=== PATIENT | female | born 1990 | race Caucasian/White ===

== ENCOUNTER 2019-01-04 22:48 | Inpatient (IN) | payer MEDICAID ==
[~2019-01-04] VITALS: Ht 152.4 cm; Wt 80.0 kg
[2019-01-04 23:20] VITALS: Ht 152.4 cm; Wt 80.0 kg
[2019-01-04 23:21] VITALS: BP 130/90; PULSE 90; RESP 20
[2019-01-04] MEDS ORDERED: PREN-93 PO (23:24)
[2019-01-05] MEDS ORDERED: BUTORPHANOL 1 MG INJ IV PRN (01:00)
[2019-01-05] MEDS ORDERED: MISOPROSTOL 200 MCG TAB PR PRN ×2 (01:00→11:00)
[2019-01-05] MEDS ORDERED: LIDOCAINE 1% (MPF) 30 ML INJ INJ PRN (01:00)
[2019-01-05] MEDS ORDERED: METHYLERGONOVINE 0.2 MG INJ IM PRN ×2 (01:00→11:00)
[2019-01-05] MEDS ORDERED: BUTORPHANOL 2 MG INJ IV PRN (01:00)
[2019-01-05] MEDS ORDERED: CARBOPROST 250 MCG INJ IM PRN ×2 (01:00→11:00)
[2019-01-05] MEDS ORDERED: OXYTOCIN 30 UNITS/LR 500 ML IV SCH ×5 (01:00→10:55)
[2019-01-05] MEDS ORDERED: OXYTOCIN 30 UNITS/LR 500 ML IV PRN ×2 (01:00→11:00)
--- NOTE | 2019-01-05 01:12 | TRIAGE ---
OB Triage Datetime Report Generated by CPN: 01/05/2019 01:12 Datetime: 01/05/2019 01:00 Stage of : OB Triage Labor Evaluation Frequency: Occasional Monitor Mode: External Pattern: Normal: <= 5 Contractions in 10 Minutes Resting Tone [place]: Relaxed Heart Rate FHR Baseline Rate: 130 Monitor Mode: External US Variability: Moderate 6-25 bpm Accelerations: 15X15 Decelerations: None Category: Category I Datetime: 01/05/2019 00:00 Stage of : OB Triage Labor Evaluation Frequency: occasional Monitor Mode: External Resting Tone [place]: Relaxed Heart Rate FHR Baseline Rate: 130 Monitor Mode: External US Variability: Moderate 6-25 bpm Accelerations: 15X15 Decelerations: None Category: Category I Datetime: 01/04/2019 23:34 Stage of : OB Triage Datetime: 01/04/2019 23:18 Stage of : OB Triage Datetime: 01/04/2019 23:09 EGA: 39.5 Datetime: 01/04/2019 23:08 Vaginal Exam Dilatation (cms): 1.5 Effacement (%): 60 Station: -3 Exam By: R.Lakhani,RN Membrane Status: Intact Vaginal Bleeding: None Cervix, Consistency: Moderate Cervix, Position: Posterior Datetime: 01/04/2019 23:02 Stage of : OB Triage Assessment Type: Triage Maternal Assessment Level of Consciousness: Fully Conscious DTR's/Clonus: DTRs 2+; No Clonus Headache: Denies (Annotations: Denies at this time but reports frontal MERINO in AM) Blurred Vision: No Respiratory Effort: Unlabored; Regular Rhythm; Equal Expansion Breath Sounds, Left: Clear and Equal Breath Sounds, Right: Clear and Equal Nausea/Vomiting: Hx of Nausea/Vomiting (Annotations: Vomiting x1 in AM) RUQ Epigastric Pain: Denies Lower Extremities Edema: None Degree: None Upper Extremities Edema: None Degree: None Facial Edema: None Temperature Route: Oral Fall Risk Assessment History of Falling: (0) No Secondary Diagnosis: (0) No Ambulatory Aid: (0) Bedrest/Nurse Assist IV Therapy: (0) No Gait: (0) Normal/Bedrest/Immobile Mental Status: (0) Oriented to Own Ability Fall Score: 0 Fall Risk Score Definition: No Risk: No action required Pain Assessment Pain Scale: 6 Pain Presence: Intermittent Pain Type: Cramping; Contraction Pain Location: Abdomen; Back Pain Relief Measures: Comfort Measures Datetime: 01/04/2019 22:57 Time of Arrival: 01/04/2019 22:35 Arrived By: Wheelchair Arrived From: Home Chief Complaint: UCs [id number] Movement: Present Contractions: Irregular Time Contractions Began: 01/04/2019 01:00 Contractions: [id number] Rupture of Membranes: Denies Vaginal Bleeding: None Vaginal Discharge: Present Recent Sexual Intercouse: Denies Abdominal Trauma: Not Applicable Patient Complaints: Contractions; Cramping; Back Pain Time Provider Notified: 01/04/2019 23:34 Provider Notified: Initial Plan: VS, Monitor, EFW, BPPwAFI
[2019-01-05] MEDS: LACTATED RINGER'S 1,000 ML IV SCH ×3 (01:35→05:37)
[2019-01-05] MEDS ORDERED: LACTATED RINGER'S 1,000 ML IV PRN (02:40)
--- NOTE | 2019-01-05 05:13 | PREAC ---
Date/Time of Note Date/Time of Note DATE: 01/05/19 TIME: 05:12 Anesthesia Eval and Record Evaluation Time Pre-Procedure Interview DATE: 01/05/19 TIME: 05:12 Age 28 Sex female NPO: 8 hrs Preoperative diagnosis IUP Planned procedure L&D Epidural Past Medical History Past Medical History: None Surgery & Anesthesia Issues No known issue Meds Anticoagulation: No Beta Anat within 24 hr: No Reason Beta Anat not given: Pt. not on B-Anat Reported Medications Vit No.124/Iron/FA ( Vitamin Tablet) 1 Each Tablet, 1 EACH PO DAILY, TAB 01/04/19 Current Medications Butorphanol Tartrate (Stadol) 1 mg Q2H PRN IV .PAIN; Start 01/05/19 at 01:00 Butorphanol Tartrate (Stadol) 2 mg Q2H PRN IV .PAIN; Start 01/05/19 at 01:00 Lidocaine (Xylocaine 1% (Mpf)) 30 ml ONCE PRN INJ .EPISIOTOMY; Start 01/05/19 at 01:00 Oxytocin/Lactated Ringer's 500 ml @ 500 mls/hr ONCE POST IV ; Start 01/05/19 at 01:00 Oxytocin/Lactated Ringer's 500 ml @ 125 mls/hr POST IV ; Start 01/05/19 at 01:00 Ibuprofen (Motrin) 600 mg ONCE PRN PO .PAIN 1-5; Start 01/05/19 at 01:00 Oxytocin/Lactated Ringer's 500 ml @ 0 mls/hr ONCE PRN IV .VAGINAL BLEEDING; Start 01/05/19 at 01:00 Methylergonovine Maleate (Methergine) 0.2 mg ONCE PRN IM .VAGINAL BLEEDING; Start 01/05/19 at 01:00 Carboprost Tromethamine (Hemabate) 250 mcg ONCE PRN IM .VAGINAL BLEEDING; Start 01/05/19 at 01:00 Misoprostol (Cytotec) 1,000 mcg ONCE PRN UT .VAGINAL BLEEDING; Start 01/05/19 at 01:00 Lactated Ringer's 1,000 ml @ 125 mls/hr Q8H IV Last administered on 01/05/19at 04:12; Admin Dose 125 MLS/HR; Start 01/05/19 at 01:30 Lactated Ringer's 1,000 ml @ 2,000 mls/hr Q30M PRN IV .ANESTHESIA; Start 01/05/19 at 02:40 Oxytocin/Lactated Ringer's 500 ml @ 0 mls/hr FOR AUGMENTATION IV Last administered on 01/05/19at 04:16; Admin Dose 1 MLS/HR; Start 01/05/19 at 04:00 Mineral Oil (Muri-Lube) 10 ml ONCE PRN TOP DELIVERY; Start 01/05/19 at 08:00; Stop 01/05/19 at 12:00 Meds reviewed: Yes Allergies Coded Allergies: No Known Allergy (Unverified , 01/05/19) Allergies Reviewed: Yes Labs/Studies Labs Reviewed: Reviewed by anesthesiologist Result Diagram: 01/05/19 0125 Laboratory Tests 01/05/19 01:25 Blood Bank Test 01/05/19 01:25 Antibody Screen NEGATIVE Blood Type O POSITIVE Rh Immune Globulin Candidate NO test: Positive Studies: ECG Pre-procedure Exam Last vitals Vital Signs Date Temp Pulse Resp B/P (MAP) Pulse Ox O2 O2 Flow FiO2 Time Delivery Rate 01/04/19 97.8 90 20 130/90 Room Air 23:21 (103) Airway: Adequate mouth opening, Adequate thyromental dist Mallampati: Mallampati II Teeth: Normal Lung: Normal Heart: Normal ASA Physical Status ASA physical status: 2 Emergency: None Planned Anesthetic Neuraxial: Epidural Planned Pain Management Epidural, Parenteral pain med Pre-operative Attestations Prior to commencing anesthesia and surgery, the patient was re-evaluated, there was verification of: *The patient's identity *The results of appropriate recent lab work and preoperative vital signs *The above evaluation not changing prior to induction *Anesthetic plan, risk benefits, alternative and complications discussed with patient/family; questions answered; patient/family understands, accepts and wishes to proceed. RAMONE GIANG MD Jan 05, 2019 05:13
[2019-01-05] MEDS ORDERED: FENTAnyl 2MCG/ML-ROPIV 0.2% 100 ML ONE (05:15)
[2019-01-05] MEDS ORDERED: DIPHENHYDRAMINE 50 MG INJ IV PRN (05:30)
[2019-01-05] MEDS ORDERED: ONDANSETRON 4 MG INJ IV PRN ×2 (05:30→11:00)
[2019-01-05] MEDS ORDERED: NALOXONE (0.4 MG/ML) INJ IV PRN (05:30)
[2019-01-05] MEDS ORDERED: FENTAnyl 2MCG/ML-ROPIV 0.2% 100 ML BAG EPI SCH (05:30)
[2019-01-05] MEDS ORDERED: MINERAL OIL LIGHT 10 ML VIAL TOP PRN (08:00)
[2019-01-05] MEDS ORDERED: LACTATED RINGER'S 1,000 ML IV* SCH (10:55)
[2019-01-05] MEDS ORDERED: METHYLERGONOVINE 0.2 MG TAB PO PRN (11:00)
[2019-01-05] MEDS ORDERED: ZOLPIDEM 5 MG TAB PO PRN (11:00)
[2019-01-05] MEDS ORDERED: NA PHOSPHATE/BIPHOS 133 ML ENEMA PR PRN (11:00)
[2019-01-05] MEDS ORDERED: WITCH HAZEL/GLYCERIN PAD PR PRN (11:00)
[2019-01-05] MEDS ORDERED: HYDROCODONE/APAP (5/325) TAB PO PRN ×2 (11:00)
[2019-01-05] MEDS ORDERED: MAGNESIUM HYDROXIDE 30ML CUP PO PRN (11:00)
[2019-01-05] MEDS ORDERED: IBUPROFEN 600 MG TAB PO PRN (11:00)
[2019-01-05] MEDS ORDERED: DIPHENHYDRAMINE 25 MG CAP PO PRN (11:00)
[2019-01-05] MEDS ORDERED: BENZOCAINE 20% 56 ML SPRAY TOP PRN (11:00)
[2019-01-05] MEDS ORDERED: LANOLIN HPA 1 PKT TOP PRN (11:00)
[2019-01-05 12:15] VITALS: BP 106/67; PULSE 69; RESP 18
[2019-01-05 12:55] VITALS: BP 101/63; PULSE 64; RESP 18
[2019-01-05 16:05] VITALS: BP 122/76; PULSE 86; RESP 18
[2019-01-05] MEDS: IBUPROFEN 600 MG TAB PO PRN (17:44)
[2019-01-05 20:00] VITALS: BP 102/66; PULSE 66; RESP 17
[2019-01-05] MEDS: SENNA/DOCUSATE NA (8.6MG/50MG) TAB PO SCH (21:43)
[2019-01-06] MEDS: IBUPROFEN 600 MG TAB PO PRN ×3 (00:28→17:17)
[2019-01-06 03:42] VITALS: BP 99/52; PULSE 62; RESP 17
--- NOTE | 2019-01-06 04:56 | PREOPHP ---
DATE OF ADMISSION: 01/05/2019 HISTORY OF PRESENT ILLNESS: This is a 28-year-old lady, 3, para 2, EDC 01/06/2019, at 39 and 6/7 weeks, admitted in early labor. She had care in my [place] office and the car e was uneventful. She started to have contractions about a few hours prior to admission and got wors e up to the time of admission. PAST PERSONAL HISTORY: No history of TB, asthma. ALLERGIES: NO ALLERGIES. SOCIAL HISTORY: The patient does not smoke. She does not drink. MEDICATIONS: She does not take any drugs except her iron and vitamins. GYNECOLOGIC HISTORY: She had menarche at the age of 12, every 28 days interval, 3 to 4 days duration , and moderate in amount. FAMILY HISTORY: Mother has a family history of diabetes, hypertension and heart disease. She is gra elsy 3, para 2. Her first delivery was 12 years ago. The last delivery was 7 years ago. All normal deliveries. REVIEW OF SYSTEMS: CARDIOVASCULAR: No chest pains. RESPIRATORY: No cough. GASTROINTESTINAL: No diarrhea, no vomiting. GENITOURINARY: No dysuria. PHYSICAL EXAMINATION: GENERAL: Reveals a conscious, coherent lady and in no acute distress. VITAL SIGNS: Blood pressure 120/80, pulse rate 80 per minute, respirations 16 per minute. BREASTS, HEART AND LUNGS: Within normal limits. ABDOMEN: Soft. No organomegaly. Fundic height 36 cm. heart tones 140 per minute. PELVIC: On admission done by nurse revealed a cervix to be 1 to 2 cm dilated, 60% effaced, station - 2 in cephalic presentation with the bag of water intact. EXTREMITIES: No pedal edema. ADMITTING DIAGNOSIS: A 39 and 6/7 weeks intrauterine in labor. The patient was planned to be observed for progress of labor around 1:45 a.m. on 01/05/2019. Dr. Flores checked the patient as s he was having some variable deceleration. She artificially ruptured the bag of water. scalp e lectrodes and IPC was inserted at 4:16 a.m. She was started on Pitocin augmentation and she received labor epidural as well and the patient progressed well with her labor epidural and I was called by t he nurse when she was completely dilated and I came right away. Dictated By: LUCI NORRIS MD NS/NTS Conf#: [id number] [facility]#: [id number]
--- NOTE | 2019-01-06 05:38 | OPR ---
DATE OF OPERATION: 01/05/2019 OPERATION PERFORMED: This is a 28-year-old lady, 3, para 2, EDC 01/06/2019, at 39 and 6/7 weeks , admitted in labor. HISTORY OF PRESENT ILLNESS: See dictated history and physical. PHYSICAL EXAMINATION: See dictated history and physical. ADMITTING DIAGNOSIS: A 39 and 6/7 weeks intrauterine in labor. PROGRESS OF LABOR: See dictated history and physical. The progressed well. She received labor epidural. On 01/05/2019, she had a normal spontaneous vaginal delivery and delivered a healthy baby girl at 10:21 a.m. 8 and 9 weighing 3310 grams, 7 pounds 5 ounces, 19 inches long over a first-degree right upper labial tear. The placenta was delivered spontaneously and complete. Manual exploration of the uterus revealed no membranes left behind. Cervix, vagina, and vulva were free of hematoma. The position was direct occiput anterior. There were 3 vessels in the cord. The placenta was normal with a small shiny side and a pinkish maternal side. The first degree right upper labial tear with one [id number] suture with 2-0 chromic. The patient tolerated the procedure well. Estimated blood loss about 400 mL. Vital signs were stable during and after the delivery. Dictated By: LUCI KENYON/MEENAKSHI Conf#: [id number] DID#: [id number] MTDD
[2019-01-06 08:00] VITALS: BP 107/76; PULSE 59; RESP 18
[2019-01-06] MEDS: SENNA/DOCUSATE NA (8.6MG/50MG) TAB PO SCH ×2 (08:38→21:54)
--- NOTE | 2019-01-06 08:41 | PAC ---
Date/Time of Note Date/Time of Note DATE: 01/06/19 TIME: 08:40 Post-Anesthesia Notes Post-Anesthesia Note Last documented vital signs Vital Signs Date Temp Pulse Resp B/P (MAP) Pulse Ox O2 O2 Flow FiO2 Time Delivery Rate 01/06/19 98.0 62 17 99/52 (68) Room Air 03:42 Activity: WNL Respiratory function: WNL Cardiovascular function: WNL Mental status: Baseline Pain reasonably controlled: Yes Hydration appropriate: Yes Nausea/Vomiting absent: Yes Comments BP:112/56, P:88, Spo2:100%, T:98,8 RAMONE GIANG MD Jan 06, 2019 08:41
[2019-01-06 16:00] VITALS: BP 126/81; PULSE 70; RESP 18
--- NOTE | 2019-01-06 16:23 | PN ---
Date/Time of Note Date/Time of Note DATE: 01/06/19 TIME: 16:21 Assessment/Plan VTE Prophylaxis Risk score (from N[place])>0 risk: 1 [place] [facility] [place] contraindicated: low risk/ambulating Pharmacological prophylaxis: NA/contraindicated Pharm contraindication: low risk/ambulating Lines/Catheters IV C[facility]ter Type ([facility] Peripheral IV Assessment/Plan Assessment/Plan HOME TOMORROW RETURN TO CLINIC IN 2 WEEKS CONTINUE WITH VITAMINS OD AND FERROUS SULFATE PO TID DIET ADVISED COUNSELED INSTRUCTED CALL OFFICE IF THERE IS ANY PROBLEMS OR CONCERN Result Diagram: 01/06/19717 Results 24hrs Laboratory Tests Test 01/06/19 07:18 White Blood Count 10.8 Red Blood Count 3.89 L Hemoglobin 11.3 L Hematocrit 34.3 L Mean Corpuscular Volume 88.2 Mean Corpuscular Hemoglobin 29.0 Mean Corpuscular Hemoglobin Concent 32.9 Red Cell Distribution Width 12.8 Platelet Count 224 # Mean Platelet Volume 10.5 H Immature Granulocytes % 0.500 H Neutrophils % 69.9 Lymphocytes % 21.9 Monocytes % 5.6 Eosinophils % 1.6 Basophils % 0.5 Nucleated Red Blood Cells % 0.0 Immature Granulocytes # 0.050 H Neutrophils # 7.6 H Lymphocytes # 2.4 Monocytes # 0.6 Eosinophils # 0.2 Basophils # 0.1 Nucleated Red Blood Cells # 0.0 Hepatitis B Surface Antigen NEGATIVE Subjective 24 Hr Interval Summary Free Text/Dictation FEELS GOOD, GOOD URINE OUTPUT, GOOD BOWEL MOVEMENT Exam/Review of Systems Exam Vitals Vital Signs Date Temp Pulse Resp B/P (MAP) Pulse Ox O2 O2 Flow FiO2 Time Delivery Rate 01/06/19 97.5 59 18 107/76 Room Air 08:00 (86) Intake and Output 01/05/19 01/05/19 01/06/19 1515:00 23:00 07:00 IntakeIntake Total 943 ml 125 ml OutputOutput Total 1500 ml BalanceBalance -557 ml 125 ml Exam VITAL SIGNS STABLE: YES AFEBRILE: YES BREAST NOT ENGORGED, NON-TENDER, NO APPRECIABLE MASS: YES LUNGS CLEAR, NO RALES, WHEEZES, RHONCHI: YES SINUS RHYTHM WITHOUT MURMUR: YES ABDOMEN: NON-TENDER FUNDUS: BELOW UMBILICUS BOWEL SOUNDS: PRESENT UTERUS: FIRM INTACT PERINEUM: YES LOCHIA: LIGHT DEEP TENDON REFLEXES: 0 EXTREMITIES: NO CALF TENDERNESS EDEMA SCALE: NONE Results Results 24hrs Laboratory Tests Test 01/06/19 07:18 White Blood Count 10.8 Red Blood Count 3.89 L Hemoglobin 11.3 L Hematocrit 34.3 L Mean Corpuscular Volume 88.2 Mean Corpuscular Hemoglobin 29.0 Mean Corpuscular Hemoglobin Concent 32.9 Red Cell Distribution Width 12.8 Platelet Count 224 # Mean Platelet Volume 10.5 H Immature Granulocytes % 0.500 H Neutrophils % 69.9 Lymphocytes % 21.9 Monocytes % 5.6 Eosinophils % 1.6 Basophils % 0.5 Nucleated Red Blood Cells % 0.0 Immature Granulocytes # 0.050 H Neutrophils # 7.6 H Lymphocytes # 2.4 Monocytes # 0.6 Eosinophils # 0.2 Basophils # 0.1 Nucleated Red Blood Cells # 0.0 Hepatitis B Surface Antigen NEGATIVE Medications Medication Current Medications Butorphanol Tartrate (Stadol) 1 mg Q2H PRN IV .PAIN; Start 01/05/19 at 01:00 Butorphanol Tartrate (Stadol) 2 mg Q2H PRN IV .PAIN; Start 01/05/19 at 01:00 Lidocaine (Xylocaine 1% (Mpf)) 30 ml ONCE PRN INJ .EPISIOTOMY; Start 01/05/19 at 01:00 Ibuprofen (Motrin) 600 mg ONCE PRN PO .PAIN 1-5 Last administered on 01/06/19at 05:37; Admin Dose 600 MG; Start 01/05/19 at 01:00 Fentanyl/ Ropivacaine 100 ml EPIDURAL INFUSION EPI ; Start 01/05/19 at 05:30 Methylergonovine Maleate (Methergine) 0.2 mg Q6H PRN PO .VAGINAL BLEED; Start 01/05/19 at 11:00 Ibuprofen (Motrin) 600 mg Q6 PRN PO MILD PAIN LEVEL 1-3; Start 01/05/19 at 11:00 Acetaminophen/ Hydrocodone Bitart ([place] (5/325)) 1 tab Q4H PRN PO MODERATE PAIN LEVEL 4-6 Last administered on 01/06/19at 15:47; Admin Dose 1 TAB; Start 01/05/19 at 11:00 Acetaminophen/ Hydrocodone Bitart ([place] (5/325)) 2 tab Q4H PRN PO SEVERE PAIN LEVEL 7-10; Start 01/05/19 at 11:00 Ondansetron HCl (Zofran Inj) 4 mg Q6H PRN IV NAUSEA/VOMITING; Start 01/05/19 at 11:00 Diphenhydramine HCl (Benadryl) 25 mg Q6H PRN PO .PRUTITUS; Start 01/05/19 at 11:00 Zolpidem Tartrate (Ambien) 5 mg QHS PRN PO .INSOMNIA; Start 01/05/19 at 11:00 Senna/Docusate Sodium (Senokot-S) 1 tab BID PO Last administered on 01/06/19at 08:38; Admin Dose 1 TAB; Start 01/05/19 at 21:00 Magnesium Hydroxide (Milk Of Mag) 30 ml Q12H PRN PO .CONSTIPATION; Start 01/05/19 at 11:00 Sodium Biphosphate/ Sodium Phosphate (Fleet Enema) 133 ml DAILY PRN MS .C ONSTIPATION; Start 01/05/19 at 11:00 Witch Rozina/ Glycerin (Tucks Pads) 1 pad BEDSIDE MEDICATION PRN MS .HEMORRHOID/EPISIOTOMY PAIN Last administered on 01/05/19at 17:45; Admin Dose 1 PAD; Start 01/05/19 at 11:00 Benzocaine (Dermoplast [place]) 1 spray BEDSIDE MEDICATION PRN TOP .HEMMORHOID/EPISIOTOMY PAIN Last administered on 01/05/19at 17:45; Admin Dose 1 SPRAY; Start 01/05/19 at 11:00 Lanolin (Lanolin Hpa) 1 applic BEDSIDE MEDICATION PRN TOP .NIPPLES Last administered on 01/05/19at 17:44; Admin Dose 1 APPLIC; Start 01/05/19 at 11:00 Measles/Mumps/ Rubella Vaccine Live (Mmr Ii Vaccine) 0.5 ml ONCE ONCE SC* ; Start 01/07/19 at 09:00; Stop 01/07/19 at 09:01 Diphtheria/ Tetanus/Acell Pertussis (Adacel) 0.5 ml ONCE ONCE IM* ; Start 01/07/19 at 09:00; Stop 01/07/19 at 09:01 Varicella Virus Vaccine Live (Varivax Vaccine With Diluent) 1,350 unit ONCE ONCE SC* ; Start 01/07/19 at 09:00; Stop 01/07/19 at 09:01 Oxytocin/Lactated Ringer's 500 ml @ 0 mls/hr ONCE PRN IV .VAGINAL BLEEDING; Start 01/05/19 at 11:00 Methylergonovine Maleate (Methergine) 0.2 mg ONCE PRN IM .VAGINAL BLEEDING; Start 01/05/19 at 11:00 Carboprost Tromethamine (Hemabate) 250 mcg ONCE PRN IM .VAGINAL BLEEDING; Start 01/05/19 at 11:00 Misoprostol (Cytotec) 1,000 mcg ONCE PRN MS .VAGINAL BLEEDING; Start 01/05/19 at 11:00 LUCI NORRIS MD Jan 06, 2019 16:23
[2019-01-06 19:45] VITALS: BP 118/72; PULSE 75; RESP 17
[2019-01-07 04:00] VITALS: BP 122/73; PULSE 61; RESP 17
[2019-01-07] MEDS: IBUPROFEN 600 MG TAB PO PRN ×2 (05:42→12:15)
[2019-01-07 08:30] VITALS: BP 111/68; PULSE 60; RESP 18
[2019-01-07] MEDS ORDERED: VARICELLA VACCINE LIVE/PF 1,350 UNIT/0.5 ML ML SC* ONE (09:00)
[2019-01-07] MEDS: SENNA/DOCUSATE NA (8.6MG/50MG) TAB PO SCH (09:00)
[2019-01-07] MEDS ORDERED: MEASLES,MUMPS,RUBELLA VACCINE INJ SC* ONE (09:00)
[2019-01-07] MEDS ORDERED: DIPHTH/TET/ACEL PERTUSS (ADULT) 0.5 ML VIAL IM* ONE (09:00)
--- NOTE | 2019-01-08 13:41 | DELSUM ---
Delivery Summary A-C Datetime Report Generated by CPN: 01/08/2019 13:41 DELIVERY PERSONNEL Neurology Specialist: Antonieta Hanson MATERNAL INFORMATION Delivery Anesthesia: Epidural Medications in Delivery: oxytocin 30 units in LR Delivery QBL (ml): 300 Placenta Cultured: No Maternal Complications: None RN Comments: Silva Chen RN orient in delivery LABOR SUMMARY EDC: 01/06/2019 00:00 No. Babies in Womb: 1 Attempted: No Labor Anesthesia: Epidural LABOR INFORMATION Reason for Induction: Not Applicable Onset of Labor: 01/04/2019 23:08 Complete Dilatation: 01/05/2019 10:01 Oxytocin: Augmentation Group B Beta Strep: Negative Antibiotics # of Doses: 0 Steroids Given: None Reason Steroids Not Administered: Not Applicable MEMBRANES Membranes Rupture Method: Artificial Rupture of Membranes: 01/05/2019 01:45 Length of Rupture (hr): 8.60 Amniotic Fluid Color: Clear Amniotic Fluid Amount: Scant Amniotic Fluid Odor: None STAGES OF LABOR Stage 1 hr: 10 Stage 1 min: 53 Stage 2 hr: 0 Stage 2 min: 20 Stage 3 hr: 0 Stage 3 min: 2 Total Time in Labor hr: 11 Total Time in Labor min: 15 VAGINAL DELIVERY Episiotomy: None Laceration Extension: N/A Laceration Type: None Laceration Repair: Not Applicable Initial Vag Sponge Count: 10 Final Vag Sponge Count: 10 Initial Vag Sharps Count: 1 Final Vag Sharps Count: 1 Sponge Count Correct: Yes; Vaginal Sweep Performed Sharps Count Correct: Yes BABY A INFORMATION Delivery Date/Time: 01/05/2019 10:21 Method of Delivery: Vaginal Born in Route : No : N/A Forceps: N/A Vacuum Extraction: N/A Shoulder Dystocia : N/A SHOULDER DYSTOCIA BABY A Delivery Date/Time: 01/05/2019 10:21 PRESENTATION/POSITION BABY A Presentation: Cephalic Cephalic Presentation: Vertex Vertex Position: Left Occipital Anterior Breech Presentation: N/A PLACENTA INFORMATION BABY A Placenta Delivery Time : 01/05/2019 10:23 Placenta Method of Delivery: Spontaneous Placenta Status: Delivered SCORES BABY A Heart Rate 1 min: >100 bpm Resp Effort 1 min: Good Cry Reflex Irritability 1 min: Cough/Sneeze/Pulls Away Muscle Tone 1 min: Active Motion Color 1 min: Blue/Pale Resuscitation Effort 1 min: Tactile Stimulation SCORE 1 MIN: 8 Heart Rate 5 min: >100 bpm Resp Effort 5 min: Good Cry Reflex Irritability 5 min: Cough/Sneeze/Pulls Away Muscle Tone 5 min: Active Motion Color 5 min: Body [place], Extremit Blue Resuscitation Effort 5 min: Tactile Stimulation SCORE 5 MIN: 9 INFANT INFORMATION BABY A Gestational Age at Delivery: 39.6 Gestational Status: Full Term- 39- 40.6 Weeks Infant Outcome : Liveborn Infant Condition : Stable Infant Sex: Female IDENTIFICATION/MEDS BABY A ID Band Number: [id number] ID Band Location: Right Leg; Left Arm Sensor Applied: Yes Sensor Number: [id number] Sensor Location : Cord Clamp Vitamin K Given : Not Given Erythromycin Given: Not Given WEIGHT/LENGTH BABY A Infant Birthweight (gm): 3310 Infant Weight (lb): 7 Weight (oz): 5 Infant Length (in): 19.00 Length (cm): 48.26 CORD INFORMATION BABY A No. Cord Vessels: 3 Nuchal Cord : N/A Cord Blood Taken: Yes Banking/Donate Info: n/a Infant Suction: Mouth; Nose ASSESSMENT BABY A Infant Complications: None Physical Findings at Delivery: Within Normal Limits Respirations: Appears Normal Mill Set Up/ALS Called : No Care By: Chantelle DEXTER Transferred To: Remains with Mother
== END 2019-01-07 13:41 | disposition home or self-care (01) | DRG 807 ==
LOC: OBT 22:48 → L-D 22:52 → OBT 01-05 00:45 → L-D 01-05 00:45 → PP1 01-05 12:11
PROVIDERS: ADMIT Obstetrics & Gynecology; ATTEND Obstetrics & Gynecology
PROC: 10E0XZZ Delivery of Products of Conception, External Approach (ICD-10-PCS; principal; 2019-01-05)
PROC: 0HQ9XZZ Repair Perineum Skin, External Approach (ICD-10-PCS; 2019-01-05)
DX: O70.0 First degree perineal laceration during delivery (principal); Z37.0 Single live birth; Z3A.39 39 weeks gestation of pregnancy
CPT/HCPCS: 62322; 76815; 76818; 85025; 85610; 85730; 86592; 86850; 86900; 86901; 87340; 90716; 99464; G0463; J2590; J3010; J7120